=== PATIENT | male | born 1965 | race Caucasian/White ===

== ENCOUNTER → 2022-10-26 13:40 | Outpatient (BNVA) | payer OTHER, SELFPAY | PROVIDERS: Visit Provider Physician Assistant Medical | DX: S06.9X0A Unspecified intracranial injury without loss of consciousness, initial encounter (principal); W00.0XXA Fall on same level due to ice and snow, initial encounter; R51.9 Headache, unspecified | CPT/HCPCS: 99203 ==

== ENCOUNTER → 2022-11-02 11:38 | Outpatient (BNVA) | payer OTHER, SELFPAY | PROVIDERS: Visit Provider Physician Assistant Medical | DX: S06.9X0D Unspecified intracranial injury without loss of consciousness, subsequent encounter (principal); S16.1XXD Strain of muscle, fascia and tendon at neck level, subsequent encounter; W00.0XXD Fall on same level due to ice and snow, subsequent encounter | CPT/HCPCS: 99213 ==

== ENCOUNTER → 2022-11-19 11:06 | Outpatient (BNVA) | payer OTHER, SELFPAY | PROVIDERS: Visit Provider Physician Assistant | DX: S06.9X0D Unspecified intracranial injury without loss of consciousness, subsequent encounter (principal); W00.0XXD Fall on same level due to ice and snow, subsequent encounter; M54.2 Cervicalgia | CPT/HCPCS: 99213 ==